=== PATIENT | male | born 2000 | race Caucasian/White ===

== ENCOUNTER 2022-10-27 14:39 | Emergency (ER) | payer SELFPAY ==
[2022-10-27 14:55] VITALS: BP 124/86; PULSE 96; RESP 19; TEMP 36.8; O2SAT 100; BMI 19.5
--- NOTE | 2022-10-27 15:10 | XRR_ITS ---
PROCEDURE INFORMATION: Exam: XR Right Ankle Exam date and time: 10/27/2022 3:29 PM Age: 21 years old Clinical indication: Injury or trauma; Other: Rolled ankle; Swelling (edema); Injury details: Right ankle injury. Injury occurred yesterday. Patient states he was in the shower and he rolled his right ankle. He now has 7 out of 10 pain in his right ankle. Most of his pain is located on the lateral aspect of ankle. ; Additional info: Rolled ankle injury TECHNIQUE: Imaging protocol: Radiologic exam of the right ankle. Views: 3 or more views. COMPARISON: No relevant prior studies available. FINDINGS: Bones/joints: No fracture identified. Ankle joint appears maintained or intact. Osseous structures show no acute abnormality. Two small rounded partially sclerotic foci within the distal tibia, likely bone islands. No cortical bone erosion or destruction. Soft tissues: No abnormal soft tissue calcification is seen. XR/XR ankle RT min 3V* [id number] IMPRESSION: No fracture or acute osseous abnormality.
--- NOTE | 2022-10-27 15:11 | ED_ITS ---
HPI - Extremity Problem General: Chief complaint: Extremity Injury, Lower Stated complaint: right foot injury Time Seen by Provider: 10/27/22 15:10 History of Present Illness: Patient is a 21-year-old male comes to the ED with right ankle injury. Injury occurred yesterday. Patient states he was in the shower and he rolled his right ankle. He now has 7 out of 10 pain in his right ankle. Most of his pain is located on the lateral aspect of ankle. Any weightbearing or range of motion in ankle causes worsening pain. Denies any other injuries. Associated symptoms: Deny chest pain, fever(s) or rash Review of Systems Const: Denies: fever(s), chills or fatigue Eyes: Denies: change in vision or eye discomfort ENMT: Denies: throat pain, odynophagia, nasal discharge or nasal congestion Card: Denies: chest pain, palpitations, edema, swelling of feet/ankles, dyspnea on exertion or orthopnea Resp: Denies: dyspnea, productive cough or non-productive cough GI: Denies: abdominal pain, nausea, vomiting, diarrhea, constipation or hematochezia : Denies: flank pain, difficulty urinating, dysuria or hematuria Musc: Reports: extremity pain (Right ankle ) and limited range of motion (Right ankle); Denies: neck pain, back pain or extremity swelling Skin/Breast: Denies: rash or new lesions Neuro: Denies: headache(s), numbness in extremities or weakness in extremities [facility] PFSH: Medical History (Updated 10/27/22 @ 16:10 by KAREL Dudley) No pertinent family history Surgical History (Updated 10/27/22 @ 15:13 by KAREL Dudley) No pertinent past surgical history Physical Exam Const: COMMON NORMALS: patient oriented x3 HENMT: COMMON NORMALS: normocephalic HEAD & SCALP: normocephalic MOUTH: Normal oral and palatal mucosa present THROAT: posterior oropharynx normal and uvula midline Neck/C-Spine: COMMON NORMALS: supple GENERAL: Yes normal visual inspection Resp: COMMON NORMALS: normal respiratory effort, No retractions, No use of accessory muscles and clear to auscultation bilaterally AUSCULTATION: clear to auscultation bilaterally Cardio: COMMON NORMALS: regular rate, regular rhythm, S1 normal heart sound present, S2 normal heart sound present, No gallops present (Cardio), No clicks present (Cardio), No murmurs present (Cardio) and Peripheral pulses 2+ throughout RATE: regular rate RHYTHM: regular rhythm HEART SOUNDS: S1 normal heart sound present and S2 normal heart sound present PERIPHERAL PULSES: Peripheral pulses 2+ throughout GI: COMMON NORMALS: Normal to inspection, nondistended, normoactive bowel sounds present, Soft to palpation, non-tender and no masses PALPATION: Yes Soft to palpation : COMMON NORMALS: Yes no CVA tenderness BLADDER/KIDNEY EXAM: Yes no CVA tenderness Back/Pelvis: COMMON NORMALS: no CVA tenderness Extremity: NARRATIVE EXTREMITY EXAM: Right ankle?no visible deformity noted. No swelling or ecchymosis. Patient has tenderness over the anterior aspect of lateral malleolus. Limited range of motion due to pain. Neurovascular intact distally. Neuro: COMMON NORMALS: patient oriented x3 GAIT: Yes Normal gait present Skin: GENERAL SKIN EXAM: dry skin Course Vital Signs: Vital signs: Vital Signs Temperature 98.3 F 10/27/22 14:55 Pulse Rate 96 10/27/22 14:55 Respiratory Rate 19 H 10/27/22 14:55 Blood Pressure 124/86 10/27/22 14:55 Pulse Oximetry 100 10/27/22 14:55 Oxygen Delivery Me thod 10/27/22 14:55 MDM - Extremity (Nontraumatic) Medical Decision Making Patient is a 21-year-old male comes to the ED with right ankle injury. Injury occurred yesterday. Patient states he was in the shower and he rolled his right ankle. He now has 7 out of 10 pain in his right ankle. Most of his pain is located on the lateral aspect of ankle. Any weightbearing or range of motion in ankle causes worsening pain. Denies any other injuries.vital stable. Right ankle?no visible deformity noted. No swelling or ecchymosis. Patient has tenderness over the anterior aspect of lateral malleolus. Limited range of motion due to pain. Neurovascular intact distally. X-ray of right ankle showed no acute fractures or findings. Patient was diagnosed with right ankle sprain and strain and was stable for discharge home. Sent home with some crutches to help with ambulation and a prescription for ibuprofen 800 mg. Told to follow-up with PCP in the next week for reevaluation. Return to ED precautions given. Patient understood and agreed with plan. Lab Data Radiology Impressions Ankle X-Ray 10/27/22 15:10 IMPRESSION: No fracture or acute osseous abnormality. Discharge Plan Discharge Patient Disposition: Home Clinical Impression: Ankle sprain and strain Condition: Stable Prescriptions: New ibuprofen 800 mg tablet 800 mg PO Q8H PRN (Reason: pain) Qty: 20 0RF Discharge Orders: Discharge ED (Routine); Ordered 10/27/22 Ordered By: Moncho Larios Discharge Diet: Regular Discharge Activity: Limit activity as instructed and Use walker/crutches as instructed Patient Instructions: Ankle Sprain (DC) Activity Restrictions/Additional Instructions: Follow-up with medical provider as directed. Use crutches for the next 2 to 3 days and then slowly advance weightbearing as tolerated. Rest, ice and elevate right ankle to help with symptoms. Take medications as prescribed. Return to the ER or your medical provider if condition worsens. Please read and understand discharge instructions. Thank you for choosing [facility] for your healthcare needs today. Please realize this is an emergency room and that we are providing you with a medical screening exam and this may not be complete and all inclusive of all the testing and or work up that you may need to determine your ailment or severity of your illness. It is very important that you follow up as instructed or that you return to the Emergency Department should you have concerns or if your condition changes or worsens in any way. Coding Level of Care Code ED Neon Technician for Franco Cooley
--- NOTE | 2022-11-02 13:09 | DCPLANNER ---
Addendum entered by Leti Hutchison 11/08/22 15:16: hvac service manager called patient due to no primary care physician - no answer at this time Original Note: hvac service manager called patient due to no primary care physician - no answer at this time
== END 2022-10-27 16:18 | disposition home or self-care (01) ==
PROVIDERS: Emergency Provider Physician Assistant
DX: S93.401A Sprain of unspecified ligament of right ankle, initial encounter (principal); X50.0XXA Overexertion from strenuous movement or load, initial encounter
CPT/HCPCS: 73610; 99283; E0114

== ENCOUNTER 2023-02-07 18:39 | Emergency (ER) | payer MEDICAID, SELFPAY ==
[2023-02-07 18:40] VITALS: BP 120/79; PULSE 80; RESP 16; TEMP 36.8; O2SAT 99; BMI 19.5
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
[2023-02-07 18:55] LABS: Basophils % 0.4 %; Eosinophils # 0.1 10^3/uL (0.0-0.8); Eosinophils % 1.3 %; Hematocrit 43.9 % (42.0-52.0); Lymphocytes # 1.2 10^3/uL (0.8-4.8); Lymphocytes % 24.4 %; Mean Corpuscular HGB Conc 34.2 g/dL (30.0-36.0); Mean Corpuscular Hemoglobin 29.4 pg (28.0-34.0); Mean Corpuscular Volume 85.9 fl (80-94); Mean Platelet Volume 11.3 fL (7.4-10.4); Monocytes # 0.4 10^3/uL (0.2-0.9); Monocytes % 8.8 %; Neutrophils # 3.09 10^3/uL (1.8-7.7); Neutrophils % 64.9 %; Nucleated Red Blood Cells % 0 %; Platelet Count 172 10^3/cmm (130-400); Red Blood Count 5.11 10^6/uL (4.1-5.3); Red Cell Distribution Width 11.9 % (12.1-15.1); White Blood Count 4.8 10^3/uL (4.0-10.0)
[2023-02-07] MEDS: sodium chloride 0.9% 1,000 ML 999 ML IV (19:01)
[2023-02-07 19:02] VITALS: BP 123/82; PULSE 73; RESP 16; O2SAT 98
[2023-02-07 19:13] LABS: Alanine Aminotransferase 10 U/L (0-41); Albumin Level 4.2 g/dL (3.5-5.2); Alkaline Phosphatase 79 U/L (40-130); Aspartate Amino Transferase 14 U/L (0-40); Blood Urea Nitrogen 8 mg/dL (6-20); Calcium 8.9 mg/dL (8.5-10.5); Carbon Dioxide 19 mmol/L (22-29); Chloride 104 mmol/L (98-107); Creatine Phosphokinase 61 U/L (39-308); Globulin 2.1 g/dL (1.3-4.6); Glomerular Filtration Rate 93.4 mL/min (90-130); Glucose 82 mg/dL (65-115); Osmolality Calculated 285 mOsm/kg (285-295); Sodium 139 mmol/L (136-145); Total Bilirubin 1.3 mg/dL (0.15-1.2); Total Protein 6.3 g/dL (6.6-8.7)
[2023-02-07 19:18] LABS: Anion Gap 19.7 (5-19); Potassium 3.7 mmol/L (3.5-5.1)
[2023-02-07 20:04] VITALS: BP 123/82; PULSE 73; RESP 16; TEMP 36.8; O2SAT 98
== END 2023-02-07 20:06 | disposition home or self-care (01) ==
PROVIDERS: Emergency Provider Emergency Medicine
DX: T67.1XXA Heat syncope, initial encounter (principal); T67.5XXA Heat exhaustion, unspecified, initial encounter; X30.XXXA Exposure to excessive natural heat, initial encounter
CPT/HCPCS: 80053; 82550; 85025; 99283; J7030